=== PATIENT | female | born 1950 | race Caucasian/White ===

== ENCOUNTER 2018-08-14 12:01 | Emergency (ER) | payer BC ==
[~2018-08-14] VITALS: Ht 170.2 cm; Wt 63.6 kg
[2018-08-14 12:10] VITALS: TEMP 98.2
[2018-08-14] MEDS ORDERED: WELLBUTRIN XL300 M1 PO (12:24)
[2018-08-14 13:11] LABS: ALANINE AMINOTRANSFERASE 22 U/L (9-52); ALBUMIN 4.1 gm/dL (3.5-5.0); ALKALINE PHOSPHATASE 80 U/L (50-136); ANION GAP 5 mmol/L (7-16); AST,SGOT 27 U/L (15-37); BILIRUBIN,TOTAL 0.5 mg/dL (0.0-1.0); BLOOD UREA NITROGEN 9 mg/dL (7-17); CALCIUM 9.3 mg/dL (8.4-10.2); CARBON DIOXIDE 27 mmol/L (22-30); CHLORIDE 110 mmol/L (98-107); CREATININE, serum 0.79 mg/dL (0.52-1.25); GLUCOSE 92 mg/dL (74-106); POTASSIUM 4.1 mmol/L (3.4-5.0); SODIUM 142 mmol/L (137-145); TOTAL PROTEIN 6.9 gm/dL (6.4-8.2)
[2018-08-14 13:13] LABS: BASO # 0.1 (0.0-0.2); BASO % 1.4 % (0.0-2.0); EOS # 0.1 (0.0-0.7); EOS % 0.8 % (0-4.0); GRAN # 5.3 (1.4-6.5); GRAN % 74.2 % (42.2-75.2); HEMOGLOBIN 12.8 g/dl (12.5-16.0); LYMPH # 1.2 (1.2-3.4); LYMPH % 17.1 % (20.0-51.0); MEAN CELL VOLUME 96 fl (80.0-100.0); MEAN CORPUSCULAR HEMOGLOBIN 32 pg (27.0-31.0); MEAN CORPUSCULAR HGB CONC 33 g/dl (33.0-37.0); MEAN PLATELET VOLUME 10.9 fl (7.4-10.4); MONO # 0.4 (0.1-0.6); MONO % 6.2 % (1.7-9.3); PLATELET COUNT 247 K/mm3 (130-400); RED BLOOD COUNT 4.05 M/mm3 (4.10-5.30); REDCELL DISTRIBUTION WIDTH-CV 11.9 % (11.5-14.5)
[2018-08-14 13:24] LABS: TROPONIN-I < 0.012 ng/mL (0.000-0.034)
[2018-08-14] MEDS ORDERED: NITROSTAT0.4 MG/TAB SL (16:11)
[2018-08-14 16:15] VITALS: BP 152/91; PULSE 67
== END 2018-08-14 16:23 | disposition home or self-care (01) ==
LOC: COL.ER 12:01
PROVIDERS: Emergency Medicine
DX: R07.9 Chest pain, unspecified (principal); M79.601 Pain in right arm; Z87.891 Personal history of nicotine dependence
CPT/HCPCS: J7030

== ENCOUNTER 2018-09-22 07:54 | Outpatient (CLI) | payer BC ==
[~2018-09-22] VITALS: Ht 170.3 cm; Wt 63.0 kg
[~2018-09-22 07:54] MED LIST: NITROSTAT0.4 MG/TAB SL; WELLBUTRIN XL300 M1 PO
[2018-09-22] MEDS ORDERED: NITROSTAT0.4 MG/TAB SL (08:27)
[2018-09-22] MEDS ORDERED: ASPIRIN E.C. 8181 MG PO (08:28)
[2018-09-22] MEDS ORDERED: COREG 3.123.125 MG/T PO (08:28)
[2018-09-22] MEDS ORDERED: NICORETTE4 M1 PO (08:29)
[2018-09-22 08:34] LABS: CALCIUM 9.3 mg/dL (8.4-10.2); CREATININE, serum 0.87 mg/dL (0.52-1.25); POTASSIUM 3.9 mmol/L (3.4-5.0); PROTHROMBIN TIME 11.5 SECONDS (9.7-12.8)
[2018-09-22 08:35] LABS: HEMATOCRIT 41.2 % (37.0-47.0); HEMOGLOBIN 13.6 g/dl (12.5-16.0); MEAN CELL VOLUME 95 fl (80.0-100.0); MEAN CORPUSCULAR HEMOGLOBIN 31 pg (27.0-31.0); MEAN CORPUSCULAR HGB CONC 33 g/dl (33.0-37.0); PLATELET COUNT 292 K/mm3 (130-400); RED BLOOD COUNT 4.34 M/mm3 (4.10-5.30); REDCELL DISTRIBUTION WIDTH-CV 11.7 % (11.5-14.5)
[2018-09-22 08:42] VITALS: BP 139/74; PULSE 61; TEMP 97.8
[2018-09-22 10:00] VITALS: BP 161/87; PULSE 65
--- NOTE | 2018-09-22 10:00 | NUR ---
Report from Linda Wright RN. JULIO complete. Pt lorie well. Pt resting well in bed.
[2018-09-22 10:15] VITALS: BP 155/72; PULSE 60
[2018-09-22 10:30] VITALS: BP 146/75; PULSE 58
[2018-09-22 10:45] VITALS: BP 143/73; PULSE 62
[2018-09-22 11:00] VITALS: BP 140/71; PULSE 58; TEMP 97.9
--- NOTE | 2018-09-22 11:00 | NUR ---
Pt has ambulated, voided and lorie PO intake s n/v.
--- NOTE | 2018-09-22 11:23 | NUR ---
PIV removed with catheter intact. Pt discharged per w/c by nurse with friend.
== END 2018-09-22 12:24 | disposition home or self-care (01) ==
LOC: EUO 07:54 → COL.RAD 08:00 → EUO 12:24
PROVIDERS: Internal Medicine Cardiovascular Disease
DX: I65.23 Occlusion and stenosis of bilateral carotid arteries (principal); Z86.69 Personal history of other diseases of the nervous system and sense organs
CPT/HCPCS: G9654; J2704

== ENCOUNTER 2019-01-19 13:42 | Emergency (ER) | payer BC ==
[~2019-01-19] VITALS: Ht 170.2 cm; Wt 63.6 kg
[~2019-01-19 13:42] MED LIST changes: +ASPIRIN E.C. 8181 MG PO; +COREG 3.123.125 MG/T PO; +NICORETTE4 M1 PO
[2019-01-19 14:25] VITALS: TEMP 98.3
[2019-01-19] MEDS ORDERED: LEXAPRO 10MG10 MG PO (15:16)
[2019-01-19 15:41] LABS: BASO # 0.1 (0.0-0.2); BASO % 1.2 % (0.0-2.0); EOS # 0.1 (0.0-0.7); EOS % 1.2 % (0-4.0); GRAN # 5.5 (1.4-6.5); GRAN % 74.7 % (42.2-75.2); HEMOGLOBIN 11.8 g/dl (12.5-16.0); LYMPH # 1.2 (1.2-3.4); LYMPH % 15.7 % (20.0-51.0); MEAN CELL VOLUME 95 fl (80.0-100.0); MEAN CORPUSCULAR HEMOGLOBIN 32 pg (27.0-31.0); MEAN CORPUSCULAR HGB CONC 33 g/dl (33.0-37.0); MEAN PLATELET VOLUME 11.4 fl (7.4-10.4); MONO # 0.5 (0.1-0.6); MONO % 7.1 % (1.7-9.3); PLATELET COUNT 226 K/mm3 (130-400); RED BLOOD COUNT 3.73 M/mm3 (4.10-5.30); REDCELL DISTRIBUTION WIDTH-CV 11.9 % (11.5-14.5)
[2019-01-19 15:44] LABS: HEMATOCRIT 35.5 % (37.0-47.0)
[2019-01-19 15:58] LABS: ALANINE AMINOTRANSFERASE 14 U/L (9-52); ALBUMIN 3.6 gm/dL (3.5-5.0); ALKALINE PHOSPHATASE 58 U/L (50-136); ANION GAP 6 mmol/L (7-16); AST,SGOT 17 U/L (15-37); BILIRUBIN,TOTAL 0.3 mg/dL (0.0-1.0); BLOOD UREA NITROGEN 10 mg/dL (7-17); CALCIUM 8.7 mg/dL (8.4-10.2); CARBON DIOXIDE 26 mmol/L (22-30); CHLORIDE 108 mmol/L (98-107); CREATINE KINASE 62 U/L (30-135); CREATININE, serum 0.71 (0.52-1.25); GLUCOSE 99 mg/dL (74-106); POTASSIUM 4.3 mmol/L (3.4-5.0); SODIUM 139 mmol/L (137-145); TOTAL PROTEIN 6.3 gm/dL (6.4-8.2)
[2019-01-19 16:14] LABS: TROPONIN-I < 0.012 ng/mL (0.000-0.035)
[2019-01-19 16:44] VITALS: BP 162/81; PULSE 58
== END 2019-01-19 17:00 | disposition home or self-care (01) ==
LOC: COL.ER 13:42
PROVIDERS: Emergency Medicine
DX: R29.898 Other symptoms and signs involving the musculoskeletal system (principal); R53.83 Other fatigue; F32.9 Major depressive disorder, single episode, unspecified; Z87.891 Personal history of nicotine dependence; Z79.82 Long term (current) use of aspirin
CPT/HCPCS: J7030

== ENCOUNTER → 2023-10-07 | Outpatient (CLI) | payer MEDICARE, OTHER ==
[~2023-10-07] VITALS: Ht 170.3 cm; Wt 61.7 kg
[~2023-10-07] MED LIST changes: +ATIVAN 0.50.5 MG/TAB PO; +LEXAPRO 10MG10 MG PO; +Regadenoson 0.08 MG/ML 5 ML SYRINGE IV SCH
[2023-10-07 09:45] VITALS: BP 132/79; PULSE 68; TEMP 98.1
[2023-10-07 10:52] VITALS: BP 121/60; PULSE 62
[2023-10-07 10:55] VITALS: BP 99/64; PULSE 87
[2023-10-07 10:56] VITALS: BP 117/75; PULSE 105
[2023-10-07 10:57] VITALS: BP 120/74; PULSE 98
[2023-10-07 10:58] VITALS: BP 114/60; PULSE 96
== END ==
LOC: COL.VAS 08:45
DX: I34.0 Nonrheumatic mitral (valve) insufficiency (principal)
CPT/HCPCS: A9500-JZ; J2785

== ENCOUNTER 2024-05-10 23:42 | Observation (INO) | payer MEDICARE, OTHER ==
[~2024-05-10] VITALS: Ht 152.4 cm; Wt 64.4 kg
[~2024-05-10 23:42] MED LIST changes: -Regadenoson 0.08 MG/ML 5 ML SYRINGE IV SCH
[2024-05-10] MEDS ORDERED: Ondansetron 4 MG/2 ML VIAL IV PRN (23:45)
[2024-05-10] MEDS ORDERED: Morphine 4 MG/ML VIAL IV PRN (23:45)
[2024-05-10] MEDS ORDERED: LR 1,000 ML IV SCH (23:45)
[2024-05-11] VITALS (8 sets, daily range): BP systolic 71–156; BP diastolic 55–71; PULSE 57–70; TEMP 97.5–98.1
[2024-05-11] MEDS ORDERED: CYMBALTA 60MG60 MG PO (01:06)
[2024-05-11] MEDS ORDERED: DESYREL 50MG50 MG PO (01:08)
--- NOTE | 2024-05-11 01:24 | NUR ---
PT ARRIVED TO FLOOR AROUND 0030 WITH WATSON (SON). IV IN R AC PATENT, DRESSING CDI. PT DENIES PAIN/TENDERNESS IN ABDOMEN. MED REC, ASSESSMENT, AND INTAKE COMPLETE. SCHEDULED MEDS GIVEN PER eMAR. ALL NEEDS MET AT THIS TIME.
[2024-05-11] MEDS ORDERED: metroNIDAZOLE 100 ML IV SCH (03:30)
[2024-05-11] MEDS ORDERED: LR 1,000 ML IV SCH (08:15)
[2024-05-11] MEDS ORDERED: OMEGA-3 1000 MG1 CAP PO (08:26)
[2024-05-11] MEDS ORDERED: VITAMIN D31000 IU PO (08:27)
--- NOTE | 2024-05-11 08:52 | NUR ---
Psychometric Examiner met with patient to discuss discharge planning. Patient lives alone in [facility] and sees Dr. Mcnulty for primary care. Patient gets medications from the pharmacy in [place] with no difficulties. Patient does not use any DME and is independent with [facility]. Patient does not have DPOA-HC and was not interested in creating one at this time. Patient has two children listed, Sammie (ph#[phone]) and Ronak (ph#[phone]). Discharge Plan: Home
--- NOTE | 2024-05-11 09:23 | NUR ---
PATIENT ALERT AND ORIENTED X4. VSS. PATIENT HERE FOR CHOLECYSTITIS. PATIENT REPORTS MILD PAIN AND NAUSEA, BUT ONLY REQUESTS ZOFRAN AT THIS TIME. IV TO RIGHT FA WITH LR RUNNING AT 100ML/HOUR. PATIENT DENIES ANY FURTHER NEEDS. CALL LIGHT IN REACH.
[2024-05-11] MEDS ORDERED: fentaNYL 50 MCG/ML 2 ML VIAL ONE ×2 (11:13→13:41)
[2024-05-11] MEDS ORDERED: Rocuronium 50 MG/5 ML Multi-Dose VIAL ONE (11:13)
[2024-05-11] MEDS ORDERED: Lidocaine PF 2% (20 MG/ML) 5 ML VIAL ONE (11:14)
[2024-05-11] MEDS ORDERED: dexAMETHasone 10 MG/ML VIAL ONE (11:15)
[2024-05-11] MEDS ORDERED: NS 10 ML IV ONE (11:15)
[2024-05-11] MEDS ORDERED: Ondansetron 4 MG/2 ML VIAL ONE (11:15)
--- NOTE | 2024-05-11 12:15 | NUR ---
PATIENT OFF OF FLOOR FOR SURGERY
[2024-05-11] MEDS ORDERED: fentaNYL 50 MCG/ML 1 ML SYRINGE/VIAL [PACU/SDC ONLY] IV PRN (13:30)
[2024-05-11] MEDS ORDERED: Ondansetron 4 MG/2 ML VIAL IV PRN (13:30)
[2024-05-11] MEDS ORDERED: HYDROmorphone 1 MG/1 ML SYRINGE [PACU/SDC ONLY] IV PRN (13:30)
[2024-05-11] MEDS ORDERED: Morphine 2 MG/1 ML VIAL [PACU/SDC ONLY] IV PRN (13:30)
[2024-05-11] MEDS ORDERED: hydrALAZINE 20 MG/ML 1 ML VIAL IV PRN (13:30)
[2024-05-11] MEDS ORDERED: Iohexol 350 - 100 ML VIAL BILE DUCT ONE (13:35)
[2024-05-11] MEDS ORDERED: Ketorolac 30 MG/ML VIAL ONE (13:35)
--- NOTE | 2024-05-11 15:55 | NUR ---
PATIENT BACK FROM PACU AT APPROXIMATELY 1530. LAPS X3 CDI WITH BANDAIDS. PATIENT REPORTS MINIMAL PAIN, DENIES NEED FOR PAIN MEDICATION. POST OP FLUIDS INFUSING INTO RIGHT AC. POST OP VITALS GOING AND WNL. NO FURTHER NEEDS. CALL LIGHT IN REACH.
[2024-05-11] MEDS ORDERED: NORCO 325 MG-51 TAB PO ×2 (16:34)
[2024-05-11] MEDS ORDERED: Carvedilol 3.125 MG TAB PO SCH (17:00)
--- NOTE | 2024-05-11 17:46 | NUR ---
DISCHARGE INSTRUCTIONS PROVIDED. PATIENT EDUCATION GIVEN. IV DC'D. FOLLOW UP APPOINTMENT DISCUSSED. MEDICATIONS REVIEWED. PATIENT AND DAUGHTER DENY ANY QUESTIONS OR CONCERNS.
--- NOTE | 2024-05-11 17:53 | NUR ---
PATIENT ESCORTED OUT VIA WHEELCHAIR
[2024-05-11] MEDS ORDERED: traZODone 50 MG TAB PO SCH (21:00)
[2024-05-12] MEDS ORDERED: DULoxetine 60 MG CAP PO SCH (09:00)
== END 2024-05-11 17:54 | disposition home or self-care (01) ==
LOC: SURG 23:42
PROVIDERS: ADMIT Surgery
DX: K80.10 Calculus of gallbladder with chronic cholecystitis without obstruction (principal); Z85.828 Personal history of other malignant neoplasm of skin; Z87.891 Personal history of nicotine dependence; Z79.82 Long term (current) use of aspirin; Z85.819 Personal history of malignant neoplasm of unspecified site of lip, oral cavity, and pharynx
CPT/HCPCS: G0378; G0379; J0690; J1100; J1170; J1836; J1885; J2405; J2704; J3010; J7120; Q9967